=== PATIENT | female | born 1980 | race Caucasian/White ===

== ENCOUNTER 2017-09-04 07:32 | Emergency (ER) | payer OTHER ==
[~2017-09-04] VITALS: Ht 157.5 cm; Wt 111.0 kg
[~2017-09-04 07:32] MED LIST: BACT800T5 PO; DICY1TAB26 PO; HYDR-2768 PO; LORTA5 PO; ZOFR4TAB3 SL
[2017-09-04 07:36] VITALS: BP 139/100; PULSE 87; RESP 16; TEMP 98.7; O2SAT 96
[2017-09-04] MEDS ORDERED: ZOLP12.5 PO (07:47)
[2017-09-04] MEDS ORDERED: HYDR50TA3 PO (07:47)
[2017-09-04] MEDS ORDERED: PLAQ200T PO (07:47)
--- NOTE | 2017-09-04 07:55 | PD ---
HPI Chief Complaint: Cold / Flu Symptoms Time Seen by Provider: 07:39 Travel History International Travel<30 days: No Contact w/Intl Traveler<30days: No Traveled to known affect area: No History of Present Illness HPI This 37-year-old female says she has not been feeling well. She has had sore throat and cough. She had vomiting on Monday. She is still feeling a bit nauseated now. She has a history of lupus and mixed connective tissue disease. She is currently on Plaquenil. She is frequently on steroids, she was on them about a month ago. She has a history of some kidney trouble secondary to the lupus. She had been having headaches which have subsided considerably. She is still having a sore throat and a cough. She has a history of asthma PFSH Past Medical History Hx Anticoagulant Therapy: No Asthma: Yes Cancer: Yes (CERVICAL) Cardiovascular Problems: No Chemotherapy: Yes Cerebrovascular Accident: No Diabetes: No Diminished Hearing: No Endocrine: No Genitourinary: No Hepatitis: No Hiatal Hernia: No Hypertension: Yes Immune Disorder: Yes ("CONNECTIVE TISSUE DISEASE" VERSUS LUPUS) Musculoskeletal: No Neurologic: No Psychiatric: No Reproductive: Yes Respiratory: Yes (ASTHAMA) Immunizations Current: No Thyroid Disease: No Influenza Vaccination: No ?: Not Past Surgical History Section: Yes (x 2) Gynecologic Surgery: Yes (CONE procedure x 7; cryocell x 3, C SECTION X 2, HYSTERECTOMY) Hysterectomy: Yes Oral Surgery: Yes (TONSILLECTOMY) Pacemaker: No Tonsillectomy: Yes Other Surgery: Yes Social History Alcohol Use: Yes (occ) Tobacco Use: No Substance Use: No Allergies-Medications (Allergen,Severity, Reaction): Coded Allergies: clindamycin (Unverified Allergy, Severe, N/V, 09/04/17) Reported Meds & Prescriptions Reported Meds & Active Scripts Active Reported Zolpidem ER (Zolpidem Tartrate) 12.5 Mg Tab 10 Mg PO HS PRN Plaquenil (Hydroxychloroquine Sulfate) 200 Mg Tab 200 Mg PO DAILY Take with food Hydrochlorothiazide 50 Mg Tab 50 Mg PO DAILY Review of Systems General / Constitutional: Positive: Fever, No: Chills Eyes: No: Diploplia, Blurred Vision HENT: No: Headaches, Vertigo Cardiovascular: No: Chest Pain or Discomfort, Palpitations Respiratory: Positive: Cough, Shortness of Breath Gastrointestinal: No: Nausea, Vomiting Musculoskeletal: No: Myalgias, Arthralgias Skin: No Rash, No Itching Neurologic: Positive: Weakness, No: Dizziness Psychiatric: No: Anxiety, Depression Hematologic/Lymphatic: No: Easy Bruising Physical Exam Narrative GENERAL: Developed female SKIN: Focused skin assessment warm/dry. HEAD: Atraumatic. Normocephalic. EYES: Pupils equal and round. No scleral icterus. No injection or drainage. ENT: No nasal bleeding or discharge. Mucous membranes pink and moist. She has had an uvulectomy. Posterior pharynx is erythematous without exudate NECK: Trachea midline. No JVD. CARDIOVASCULAR: Regular rate and rhythm. No murmur appreciated. RESPIRATORY: No accessory muscle use. Clear to auscultation. Breath sounds equal bilaterally. GASTROINTESTINAL: Abdomen soft, non-tender, nondistended. Hepatic and splenic margins not palpable. MUSCULOSKELETAL: No obvious deformities. No clubbing. No cyanosis. No edema. NEUROLOGICAL: Awake and alert. No obvious cranial nerve deficits. Motor grossly within normal limits. Normal speech. PSYCHIATRIC: Appropriate mood and affect; insight and judgment normal. Data Data Last Documented VS Vital Signs Date Time Temp Pulse Resp B/P (MAP) Pulse Ox O2 Delivery O2 Flow Rate FiO2 09/04/17 08:17 82 20 149/91 (110) 95 Room Air 09/04/17 07:36 98.7 Orders Orders Complete Blood Count With Diff (09/04/17 07:53) Comprehensive Metabolic Panel (09/04/17 07:53) Group A Rapid Strep Screen (09/04/17 07:53) Influenzae A/B Antigen (09/04/17 07:53) Chest, Single Ap (09/04/17 07:53) Sodium Chlor 0.9% 1000 Ml Inj (Ns 1000 M (09/04/17 08:00) Ondansetron Inj (Zofran Inj) (09/04/17 08:00) Ketorolac Inj (Toradol Inj) (09/04/17 08:15) Potassium Chloride (Kcl) (09/04/17 08:30) Labs Laboratory Tests Test 09/04/17 08:00 White Blood Count 10.8 TH/MM3 Red Blood Count 4.96 MIL/MM3 Hemoglobin 14.0 GM/DL Hematocrit 41.7 % Mean Corpuscular Volume 84.1 FL Mean Corpuscular Hemoglobin 28.3 PG Mean Corpuscular Hemoglobin Concent 33.7 % Red Cell Distribution Width 11.9 % Platelet Count 202 TH/MM3 Mean Platelet Volume 11.7 FL Neutrophils (%) (Auto) 82.6 % Lymphocytes (%) (Auto) 12.3 % Monocytes (%) (Auto) 4.8 % Eosinophils (%) (Auto) 0.0 % Basophils (%) (Auto) 0.3 % Neutrophils # (Auto) 9.0 TH/MM3 Lymphocytes # (Auto) 1.3 TH/MM3 Monocytes # (Auto) 0.5 TH/MM3 Eosinophils # (Auto) 0.0 TH/MM3 Basophils # (Auto) 0.0 TH/MM3 CBC Comment DIFF FINAL Differential Comment Blood Urea Nitrogen 11 MG/DL Creatinine 0.80 MG/DL Random Glucose 93 MG/DL Total Protein 7.9 GM/DL Albumin 3.6 GM/DL Calcium Level 8.9 MG/DL Alkaline Phosphatase 58 U/L Aspartate Amino Transf (AST/SGOT) 16 U/L Alanine Aminotransferase (ALT/SGPT) 26 U/L Total Bilirubin 0.6 MG/DL Sodium Level 137 MEQ/L Potassium Level 3.2 MEQ/L Chloride Level 101 MEQ/L Carbon Dioxide Level 28.2 MEQ/L Anion Gap 8 MEQ/L Estimat Glomerular Filtration Rate 81 ML/MIN [facility] Medical Decision Making Medical Screen Exam Complete: Yes Emergency Medical Condition: Yes Medical Record Reviewed: Yes Differential Diagnosis Differential includes pneumonia, strep pharyngitis, viral syndrome Narrative Course Throat swab is positive for strep. Patient be placed on amoxicillin 500 3 times daily. I think she will also benefit from a short burst of steroids. Diagnosis Primary Impression: Strep pharyngitis Scripts Methylprednisolone Dosepak (Medrol Dosepak) 4 Mg Dspk 4 MG PO DIRECTED, #1 DSPK 0 Refills Per Pharmacist direction Prov: Wes Givens MD 09/04/17 Amoxicillin (Amoxicillin) 500 Mg Tab 500 MG PO TID for Infection for 10 Days, TAB 0 Refills Prov: Wes Givens MD 09/04/17 Disposition: 01 DISCHARGE HOME Condition: Stable Wes Givens MD September 04, 2017 07:55
[2017-09-04] MEDS ORDERED: SODIUM CHLOR 0.9% 1000 ML INJ 1,000 ML IV ONE (08:00)
[2017-09-04] MEDS ORDERED: ONDANSETRON HCL 4 MG/2 ML VIAL IV PUSH ONE (08:00)
[2017-09-04 08:11] LABS: BASOPHIL % 0.3 % (0.0-2.0); HEMATOCRIT 41.7 % (35.0-46.0); LYMPH % 12.3 % (9.0-44.0); LYMPHOCYTE # 1.3 TH/MM3 (1.0-4.8); MEAN CELL VOLUME 84.1 FL (80.0-100.0); MEAN CORPUSCULAR HEMOGLOBIN 28.3 PG (27.0-34.0); MEAN CORPUSCULAR HGB CONC 33.7 % (32.0-36.0); MEAN PLATELET VOLUME 11.7 FL (7.0-11.0); MONO % 4.8 % (0.0-8.0); MONOCYTE # 0.5 TH/MM3 (0-0.9); NEUT % 82.6 % (16.0-70.0); PLATELET COUNT 202 TH/MM3 (150-450); RED BLOOD COUNT 4.96 MIL/MM3 (4.00-5.30); RED CELL DISTRIBUTION WIDTH 11.9 % (11.6-17.2); WHITE BLOOD COUNT 10.8 TH/MM3 (4.0-11.0)
[2017-09-04] MEDS ORDERED: KETOROLAC TROMETHAMINE 30 MG/ML (IVP) VIAL IV PUSH ONE (08:15)
[2017-09-04 08:17] VITALS: BP 149/91; PULSE 82; RESP 20; O2SAT 95
--- NOTE | 2017-09-04 08:17 | RADRPT ---
EXAM DATE: 09/04/2017 8:13 AM EDT AGE/SEX: 37 years / Female INDICATIONS: Cough. CLINICAL DATA: This is the patient's initial encounter. Patient reports that signs and symptoms have been present for 2 days and indicates a pain score of 4/10. MEDICAL/SURGICAL HISTORY: . Hypertension. Asthma, cervical cancer Hysterectomy. COMPARISON: No prior [facility] exams available for comparison. FINDINGS: A single AP view of the chest demonstrates the lungs to be symmetrically aerated without evidence of mass, infiltrate or effusion. The cardiomediastinal contours are unremarkable. Osseous structures a re intact. CONCLUSION: No acute cardiopulmonary disease. Electronically signed by: Gerald Lerma MD 09/04/2017 8:16 AM EDT
[2017-09-04 08:19] LABS: CHLORIDE 101 MEQ/L (98-107); SODIUM (NA) 137 MEQ/L (136-145)
[2017-09-04 08:23] LABS: ALBUMIN 3.6 GM/DL (3.4-5.0); BICARBONATE 28.2 MEQ/L (21.0-32.0); CALCIUM 8.9 MG/DL (8.5-10.1); GLUCOSE,RANDOM 93 MG/DL (74-106)
[2017-09-04 08:24] LABS: BLOOD UREA NITROGEN 11 MG/DL (7-18)
[2017-09-04 08:26] LABS: ALT (GPT) 26 U/L (10-53); AST (GOT) 16 U/L (15-37)
[2017-09-04 08:27] LABS: GLOMERULAR FILTRATION RATE 81 ML/MIN (>89)
[2017-09-04 08:28] LABS: TOTAL BILIRUBIN ADULT 0.6 MG/DL (0.2-1.0); TOTAL PROTEIN 7.9 GM/DL (6.4-8.2)
[2017-09-04 08:29] LABS: ALKALINE PHOSPHATASE 58 U/L (45-117)
[2017-09-04] MEDS ORDERED: POTASSIUM CHLORIDE 10 MEQ CONTROLLED RELEASE TAB PO ONE (08:30)
[2017-09-04] MEDS ORDERED: methylPREDNISolone SOD SUCC 125 MG/2 ML VIAL IV PUSH SCH (09:00)
[2017-09-04] MEDS ORDERED: AMOX500T PO (09:00)
[2017-09-04] MEDS ORDERED: MEDR4PAK PO (09:00)
[2017-09-04 09:26] VITALS: BP 140/84; PULSE 82; RESP 18; O2SAT 97
== END 2017-09-04 09:29 | disposition home or self-care (01) ==
LOC: PHED 07:32
DX: J02.0 Streptococcal pharyngitis (principal); M32.9 Systemic lupus erythematosus, unspecified; M35.1 Other overlap syndromes; J45.909 Unspecified asthma, uncomplicated; I10 Essential (primary) hypertension; Z85.41 Personal history of malignant neoplasm of cervix uteri
CPT/HCPCS: 71045; 80053; 85025; 87804; 87880; 96361; 96374; 96375; 99284; J1885; J2405; J2930; J7030